=== PATIENT | female | born 1995 | race Caucasian/White ===

== ENCOUNTER 2024-06-04 02:26 | Inpatient (IN) | payer OTHER ==
[2024-06-04] MEDS ORDERED: Sodium Chloride 0.9% 10 ML Syringe FLUSH PRN (02:56)
[2024-06-04] MEDS ORDERED: Metoclopramide 10 MG/2 ML SDV IVPUSH PRN (02:56)
[2024-06-04] MEDS ORDERED: fentaNYL 100 MCG/2 ML SDV IVPUSH PRN (02:56)
[2024-06-04] MEDS ORDERED: Carboprost Tromethamine 250 MCG/1 ML Amp IM PRN (02:56)
[2024-06-04] MEDS ORDERED: Ondansetron 4 MG/2 ML SDV IVPUSH PRN (02:56)
[2024-06-04] MEDS ORDERED: Calcium Carbonate 500 MG Tab.Chew PO PRN (02:56)
[2024-06-04] MEDS ORDERED: Tranexamic Acid 1,000 MG in Sodium Chloride 0.9% 100 ML IV PRN (02:56)
[2024-06-04] MEDS ORDERED: Methylergonovine 0.2 MG/1 ML Amp IM PRN (02:56)
[2024-06-04 03:01] LABS: BASOPHILS PERCENT AUTO 0.2 % (0.0-1.0); EOSINOPHILS PERCENT AUTO 1.7 % (1.0-3.0); HEMATOCRIT 40.3 % (37.0-47.0); HEMOGLOBIN 13.1 g/dL (12.0-16.0); LYMPHOCYTES PERCENT AUTO 22.9 % (20.5-50.1); MEAN CORPUSCULAR HEMOGLOBIN 30.8 pg (27.0-34.0); MEAN CORPUSCULAR HGB CONC 32.5 g/dL (33.0-35.0); MEAN CORPUSCULAR VOLUME 94.8 fL (80-100); MONOCYTES PERCENT AUTO 7.4 % (2-8); NEUTROPHILS PERCENT AUTO 67.8 % (42.2-75.2); PLATELET COUNT,PLT 276 10^3/uL (150-450); RED BLOOD CELL COUNT 4.25 10^6/uL (4.2-5.4); WHITE BLOOD CELL COUNT,WBC 12.1 10^3/uL (5.0-10.0)
[2024-06-04] MEDS: Lactated Ringers 1,000 ML IV SCH (03:10)
[2024-06-04] MEDS ORDERED: fentaNYL 100 MCG/2 ML SDV ONE ×2 (03:16→13:44)
[2024-06-04] MEDS ORDERED: Bupivacaine 0.25% 10 ML SDV ONE ×3 (03:16→17:21)
[2024-06-04] MEDS: Lactated Ringers 1,000 ML IV ONE (06:24)
[2024-06-04] MEDS: Oxytocin/Normal Saline 30 UNIT/500 ML BAG IV SCH (08:23)
[2024-06-04] MEDS: Acetaminophen 325 MG Tab PO PRN (09:59)
[2024-06-04] MEDS: Lidocaine 1% 30 ML SDV INJECT ONE (21:00)
[2024-06-04] MEDS: Lidocaine 1% 30 ML SDV ONE (21:22)
[2024-06-04] MEDS ORDERED: Oxytocin 10 Units/1 ML SDV IM PRN (21:23)
[2024-06-04] MEDS ORDERED: Simethicone 80 MG Tab.Chew PO PRN (21:23)
[2024-06-04] MEDS ORDERED: Acetaminophen 325 MG Tab PO PRN (21:23)
[2024-06-04] MEDS: Ibuprofen 800 MG Tab PO SCH (21:45)
[2024-06-04] MEDS: Witch Hazel Medicated Pads 100/Jar TOP PRN (22:29)
[2024-06-04] MEDS: Benzocaine/Menthol 20%-0.5% Spray 78 GM Cannister TOP PRN (22:31)
[2024-06-05] MEDS: Misoprostol 100 MCG Tab BUCCAL ONE (05:54)
[2024-06-05] MEDS: Prenatal Multivitamin with Calcium/Folic Acid/Iron Tab PO SCH (07:11)
[2024-06-05] MEDS: Docusate Sodium 100 MG Cap PO PRN (07:11)
[2024-06-06 06:34] LABS: HEMATOCRIT 31.8 % (37.0-47.0); HEMOGLOBIN 10.1 g/dL (12.0-16.0); MEAN CORPUSCULAR HGB CONC 31.8 g/dL (33.0-35.0); MEAN CORPUSCULAR VOLUME 97.5 fL (80-100); RED BLOOD CELL COUNT 3.26 10^6/uL (4.2-5.4); WHITE BLOOD CELL COUNT,WBC 11.5 10^3/uL (5.0-10.0)
== END 2024-06-06 12:23 | disposition home or self-care (01) | DRG 807 ==
LOC: DL.OBCHECK 02:26 → DL.OB 02:56 → OBSVTOIN 20:46 → DL.OB 20:46
PROVIDERS: ADMIT Student in an Organized Health Care Education/Training Program; ATTEND Student in an Organized Health Care Education/Training Program
PROC: 10D07Z6 Extraction of Products of Conception, Vacuum, Via Natural or Artificial Opening (ICD-10-PCS; principal; 2024-06-04)
PROC: 0KQM0ZZ Repair Perineum Muscle, Open Approach (ICD-10-PCS; 2024-06-04)
PROC: 3E0R3BZ Introduction of Anesthetic Agent into Spinal Canal, Percutaneous Approach (ICD-10-PCS; 2024-06-04)
PROC: 00HU33Z Insertion of Infusion Device into Spinal Canal, Percutaneous Approach (ICD-10-PCS; 2024-06-04)
DX: O42.02 Full-term premature rupture of membranes, onset of labor within 24 hours of rupture (principal); Z37.0 Single live birth; O99.02 Anemia complicating childbirth; O99.214 Obesity complicating childbirth; O70.1 Second degree perineal laceration during delivery; O76 Abnormality in fetal heart rate and rhythm complicating labor and delivery; O75.81 Maternal exhaustion complicating labor and delivery; Z3A.39 39 weeks gestation of pregnancy
CPT/HCPCS: 36415; 51701; 51702; 59409; 85025; 85027; 86850; 86900; 86901; A9270-GY; C1729; J2590; J3490; J7120

== ENCOUNTER 2025-04-20 20:04 | Inpatient (IN) | payer OTHER ==
[2025-04-20] MEDS: Lactated Ringers 1,000 ML IV ONE (20:46)
[2025-04-20] MEDS ORDERED: Ondansetron 4 MG/2 ML SDV IVPUSH PRN (20:48)
[2025-04-20] MEDS ORDERED: Sodium Chloride 0.9% 10 ML Syringe FLUSH PRN (20:48)
[2025-04-20] MEDS ORDERED: Carboprost Tromethamine 250 MCG/1 ML Amp IM PRN (20:48)
[2025-04-20 20:59] LABS: PLATELET COUNT,PLT 343.0 10^3/uL (150-450); RED BLOOD CELL COUNT 3.98 10^6/uL (4.2-5.4); WHITE BLOOD CELL COUNT,WBC 9.3 10^3/uL (5.0-10.0)
[2025-04-20] MEDS ORDERED: Oxytocin/Lactated Ringers 30 UNIT/500 ML BAG IV SCH (21:00)
[2025-04-20] MEDS: Lactated Ringers 1,000 ML IV SCH (21:15)
[2025-04-21] MEDS: Oxytocin/Normal Saline 30 UNIT/500 ML BAG IV SCH (01:16)
[2025-04-21] MEDS ORDERED: Oxytocin 10 Units/1 ML SDV IM PRN (01:38)
[2025-04-21] MEDS ORDERED: Carboprost Tromethamine 250 MCG/1 ML Amp IM PRN (01:38)
[2025-04-21] MEDS: Witch Hazel Medicated Pads 100/Jar TOP PRN (02:21)
[2025-04-21] MEDS: Benzocaine/Menthol 20%-0.5% Spray 78 GM Cannister TOP PRN (02:21)
[2025-04-21] MEDS: Prenatal Multivitamin with Calcium/Folic Acid/Iron Tab PO SCH (08:09)
== END 2025-04-22 10:44 | disposition home or self-care (01) | DRG 807 ==
LOC: DL.OBCHECK 20:04 → DL.OB 20:48 → OBSVTOIN 04-21 01:12
PROVIDERS: ADMIT Family Medicine; ATTEND Family Medicine
PROC: 0HQ9XZZ Repair Perineum Skin, External Approach (ICD-10-PCS; principal; 2025-04-21)
PROC: 3E0R3BZ Introduction of Anesthetic Agent into Spinal Canal, Percutaneous Approach (ICD-10-PCS; principal; 2025-04-21)
PROC: 10E0XZZ Delivery of Products of Conception, External Approach (ICD-10-PCS; principal; 2025-04-21)
PROC: 10907ZC Drainage of Amniotic Fluid, Therapeutic from Products of Conception, Via Natural or Artificial Opening (ICD-10-PCS; principal; 2025-04-21)
DX: O99.02 Anemia complicating childbirth (principal); Z37.0 Single live birth; Z3A.39 39 weeks gestation of pregnancy; Z98.890 Other specified postprocedural states; O70.0 First degree perineal laceration during delivery; O99.344 Other mental disorders complicating childbirth; F41.9 Anxiety disorder, unspecified; E66.811 Obesity, class 1; F32.A Depression, unspecified; O99.214 Obesity complicating childbirth; Z79.899 Other long term (current) drug therapy
CPT/HCPCS: 36415; 51702; 59409; 85027; A9270-GY; J2590; J7120